=== PATIENT | female | born 1990 | race Caucasian/White ===

== ENCOUNTER 2017-11-05 07:06 | Inpatient (IN) | payer OTHER, BC ==
[2017-11-05] MEDS ORDERED: Misoprostol 25 MCG (1/4 of 100 MCG) Tab VAG ONE (07:35)
[2017-11-05] MEDS ORDERED: Oxytocin/Normal Saline 10 UNIT/1,000 ML BAG IV SCH (11:15)
[2017-11-05] MEDS: Lactated Ringers 1,000 ML IV SCH ×3 (12:43→22:05)
--- NOTE | 2017-11-05 19:11 | PCM.LDHP ---
L&D History of Present Illness - General Date of Service: 11/05/17 Admit Problem/Dx: Patient Status Order with Admit Dx/Problem 11/05/17 07:22 Admission Status [Patient Status] [ADT] Routine Admission Diagnosis/Problem Admission Diagnosis/Problem Source of Information: Patient History Limitations: Reports: No Limitations - History of Present Illness Introduction:: 27 yo Primigravida admitted for induction of labor,post dates - Related Data Allergies/Adverse Reactions: Allergies Allergy/AdvReac Type Severity Reaction Status Date / Time No Known Allergies Allergy Verified 11/05/17 08:20 Home Medications: Home Meds [id number]/Iron Fumarate/FA/DSS [ 19 Tablet] 1 each PO DAILY 11/05/17 [ History] Past Medical History 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 L&D Exam - Exam Exam: See Below - Vital Signs Vital Signs: Last Vital Signs Temp 97.6 F 11/05/17 18:45 Pulse 87 11/05/17 18:45 Resp 16 11/05/17 18:45 BP 129/88 11/05/17 18:45 Pulse Ox 100 11/05/17 18:45 Weight: 103.419 kg - OB Specific Contraction Duration (sec): 40-70 Contraction Frequency (min): 2-3 Contraction Intensity: Moderate to Strong - Velasquez Score Velasquez Score Cervix Position: Posterior Velasquez Score Consistency: Soft Velasquez Score Dilation: Closed Velasquez Score 's Station: -1 ,0 - Exam General: Alert, Oriented HEENT: PERRLA, Conjunctiva Clear, EACs Clear, EOMI, Hearing Intact, Mucosa Moist & [place], Nares Patent, Normal Nasal Septum, Posterior Pharynx Clear, TMs Clear Neck: Supple, Trachea Midline Lungs: Clear to Auscultation, Normal Respiratory Effort Cardiovascular: Regular Rate, Regular Rhythm GI/Abdominal Exam: Normal Bowel Sounds, Soft, Non-Tender, No Organomegaly, No Distention, No Abnormal Bruit, No Mass, Pelvis Stable Rectal Exam: Normal Exam, Normal Rectal Tone Genitourinary: Normal external exam, Normal bimanual exam, Normal speculum exam Back Exam: Normal Inspection, Full Range of Motion Extremities: Normal Inspection, Normal Range of Motion, Non-Tender, No Pedal Edema, Normal Capillary Refill Skin: Warm, Dry, Intact Neurological: Cranial Nerves Intact, Reflexes Equal Bilateral Psychiatric: Alert, Normal Affect, Normal Mood - Problem List (1) Post-dates SNOMED Code(s): 78948644 ICD Code: O48.0 - POST-TERM Status: Acute Current Visit: Yes Qualifiers: Post-term type: 40-42 weeks gestation Qualified Code(s): O48.0 - Post-term (2) Elective induction of labor planned SNOMED Code(s): 039115404 ICD Code: [id number] - Status: Acute Current Visit: Yes Problem List Initiated/Reviewed/Updated: Yes Orders Last 24hrs: Active Orders 24 hr Category Date Time Status Admission Status [Patient Status] [ADT] Routine ADT 11/05/17 07:22 Active Communication Order [RC] ASDIRECTED Care 11/05/17 11:16 Active Communication Order [RC] ASDIRECTED Care 11/05/17 11:16 Active Communication Order [RC] ASDIRECTED Care 11/05/17 11:16 Active Communication Order [RC] ASDIRECTED Care 11/05/17 11:16 Active Notify Provider [RC] PRN Care 11/05/17 11:16 Active Notify Provider [RC] STAT Care 11/05/17 11:16 Active Vital Signs [RC] PER UNIT ROUTINE Care 11/05/17 11:16 Active Lactated Ringers [Ringers, Lactated] 1,000 ml Med 11/05/17 12:00 Active IV ASDIRECTED Oxytocin/Normal Saline [Pitocin in NS 10 UNITS/1,000 ML Med 11/05/17 11:15 Active ] 10 unit in 1,000 ml IV TITRATE Resuscitation Status Routine Resus Stat 11/05/17 10:27 Ordered Medication Orders Oxytocin/Sodium Chloride (Pitocin In Ns 10 Units/1,000 Ml) 10 unit in 1,000 mls @ 12 mls/hr IV TITRATE GREGOR; 2 MUNITS/MIN PRN Reason: Protocol Last Titration: 11/05/17 14:33 Dose: 8 munits/min, 48 mls/hr Titration: 11/05/17 13:56 Dose: 6 munits/min, 36 mls/hr Titration: 11/05/17 13:29 Dose: 4 munits/min, 24 mls/hr Admin: 11/05/17 12:41 Dose: 2 munits/min, 12 mls/hr Lactated Ringer's (Ringers, Lactated) 1,000 mls @ 125 mls/hr IV ASDIRECTED [facility] Last Admin: 11/05/17 12:43 Dose: 125 mls/hr Assessment/Plan Comment:: Admit for Cytotec Induction. There after augment by Pitocin
[2017-11-05] MEDS ORDERED: Ondansetron 4 MG/2 ML SDV IVPUSH ONE (19:42)
[2017-11-05] MEDS ORDERED: fentaNYL 300 MCG in Ropivacaine 200 ML EPIDUR ONE (19:42)
[2017-11-05] MEDS ORDERED: fentaNYL 100 MCG/2 ML SDV EPIDUR ONE ×3 (20:00→23:30)
[2017-11-05] MEDS ORDERED: ePHEDrine 50 MG/ML SDV IVPUSH PRN (21:18)
[2017-11-05] MEDS ORDERED: Promethazine 25 MG/ML SDV IV PRN (21:18)
[2017-11-05] MEDS ORDERED: Naloxone 0.4 MG/ML SDV IVPUSH PRN (21:18)
[2017-11-05] MEDS ORDERED: diphenhydrAMINE 50 MG/ML SDV IVPUSH PRN (21:18)
[2017-11-05] MEDS ORDERED: hydrOXYzine HCl 50 MG/ML SDV IM PRN ×2 (21:18)
[2017-11-05] MEDS ORDERED: Naloxone 0.4 MG in Sodium Chloride 0.9% 100 ML IV PRN (21:18)
[2017-11-06] MEDS ORDERED: Ondansetron 4 MG/2 ML SDV IVPUSH PRN (02:00)
[2017-11-06] MEDS ORDERED: Misoprostol 200 MCG Tab RECTAL ONE (06:15)
[2017-11-06] MEDS ORDERED: Lidocaine 1% 20 ML MDV INJECT ONE (06:30)
[2017-11-06] MEDS: Ibuprofen 600 MG Tab PO SCH ×3 (08:30→18:24)
--- NOTE | 2017-11-06 14:47 | DEL ---
DATE OF DELIVERY: 11/06/2017 NURSES: LULA Garcia, and LULA Nicholson. PREOPERATIVE DIAGNOSES: 1. 40 weeks and 3 days intrauterine . 2. Labor dystocia in second stage. POSTOPERATIVE DIAGNOSES: 1. 40 weeks and 3 days gestation. 2. Failure to progress due to posterior position. PROCEDURES: 1. Vacuum-assisted vaginal delivery with a second-degree midline laceration. 2. Repair of the second-degree midline laceration lasting 25 minutes. ANESTHESIA: Epidural. ESTIMATED BLOOD LOSS: 600 mL. COMPLICATIONS: None. FINDINGS: 1. Live male infant with scores of 8 and 9. 2. Placenta delivered intact, 3-vessel, spontaneously. DISPOSITION: The patient and the baby remained in the Labor Unit in a stable condition. SUMMARY: This 27-year-old female was admitted. She is a primigravida, admitted at 40 weeks and 3 days for induction with a favorable cervix. This was performed by Cytotec. heart tones remained reactive throughout. She was started on Pitocin and labored all night. She was found to be complete at about 0330 hours. Pushing was started about 0345 hours after emptying the bladder. After pushing for 2 hours, the baby's head was not descending. I determined that it is most likely a posterior position and maternal exhaustion necessitated a discussion of an alternative delivery method and vacuum-assisted delivery was discussed with the parents, and they agreed to the procedure. Risks and benefits were reviewed. Estimated weight was about 8 pounds. The patient's perineum was injected with 1% lidocaine, and I performed episiotomy in the midline. The vacuum was placed in the correct position, in the posterior fontanelle, which was confirmed digitally. With the patient's next contraction, the vacuum was inflated and gentle downward pressure was used to assist with bringing the baby's head to 3+ station. Three pop-offs happened. I changed the vacuum to the mushroom-type, placed the correct position and performed the fourth pull, by which the baby's head delivered to a +4 station. The head was stabilized. The vacuum was deflated and removed. A nuchal cord was removed, and the baby was delivered atraumatically. There was less than 30 seconds of delay. No additional maneuvers were required to deliver the anterior shoulder. The baby's cord was clamped x2 and cut. The infant was handed to the waiting nurses. The Pitocin was added to the patient's IV fluids. The placenta delivered spontaneously intact, 3-vessel. Vaginal inspection revealed a second- degree midline laceration. This was repaired with a 4-0 Vicryl in a running fashion. Bleeding was noted to be brisk after the Pitocin and massage. I inserted 600 mcg of Cytotec into the rectum. She tolerated these procedures well. The baby was vigorous, crying and moving all extremities. He will go to the nursery when ready. Total repair time of the laceration was 25 minutes. /[id number] IWONA/MATEUS COOK
[2017-11-07] MEDS: Ibuprofen 600 MG Tab PO SCH ×4 (00:35→18:42)
--- NOTE | 2017-11-07 15:44 | PCM.PNPP ---
- General Info Date of Service: 11/07/17 Functional Status: Reports: Pain Controlled - Review of Systems General: Reports: No Symptoms HEENT: Reports: No Symptoms Pulmonary: Reports: No Symptoms Cardiovascular: Reports: No Symptoms Gastrointestinal: Reports: No Symptoms Genitourinary: Reports: No Symptoms Musculoskeletal: Reports: No Symptoms Skin: Reports: No Symptoms Neurological: Reports: No Symptoms Psychiatric: Reports: No Symptoms - General Info Date of Service: 11/07/17 - Patient Data Vital Signs - Most Recent: Last Vital Signs Temp 98.2 F 11/07/17 08:00 Pulse 82 11/07/17 08:00 Resp 20 11/07/17 08:00 BP 107/70 11/07/17 08:00 Pulse Ox 98 11/07/17 08:00 Weight - Most Recent: 103.419 kg Lab Results - Last 24 Hours: Laboratory Results - last 24 hr 11/07/17 Range/Units 06:10 WBC 17.3 H (4.5-12.0) X10-3/uL RBC 3.36 (3.23-5.20) x10(6)uL Hgb 10.3 L (11.5-15.5) g/dL Hct 30.7 (30.0-51.3) % MCV 91.6 (80-96) fL MCH 30.6 (27.7-33.6) pg MCHC 33.4 (32.2-35.4) g/dL RDW 13.5 (11.5-15.5) % Plt Count 237 (125-369) X10(3)uL Med Orders - Current: Current Medications Oxytocin/Sodium Chloride (Pitocin In Ns 10 Units/1,000 Ml) 10 unit in 1,000 mls @ 12 mls/hr IV TITRATE GREGOR; 2 MUNITS/MIN PRN Reason: Protocol Last Titration: 11/06/17 05:11 Dose: 16 munits/min, 96 mls/hr Ibuprofen (Motrin) 600 mg PO Q6H GREG[facility] Last Admin: 11/07/17 13:59 Dose: 600 mg Discontinued Medications Diphenhydramine HCl (Benadryl) 25 mg IVPUSH ASDIRECTED PRN PRN Reason: PRURITUS Last Admin: 11/06/17 08:40 Dose: 25 mg Ephedrine Sulfate (Ephedrine Sulfate) 5 mg IVPUSH ASDIRECTED PRN PRN Reason: HYPOTENSION Hydroxyzine HCl (Vistaril) 50 mg IM Q6H PRN PRN Reason: PRURITIS Hydroxyzine HCl (Vistaril) 0 mg IM Q4H PRN PRN Reason: N/V Lactated Ringer's (Ringers, Lactated) 1,000 mls @ 125 mls/hr IV ASDIRECTED [facility] Last Admin: 11/05/17 22:05 Dose: 125 mls/hr Naloxone HCl 0.4 mg/ Sodium (Chloride) 101 mls @ 25 mls/hr IV ASDIRECTED PRN PRN Reason: PER ORDER OF ANESTHESIA Lidocaine HCl (Xylocaine 1%) 20 ml INJECT ONETIME ONE Stop: 11/06/17 06:31 Last Admin: 11/06/17 06:05 Dose: 20 ml Misoprostol (Cytotec) 25 mcg VAG ONETIME ONE Stop: 11/05/17 07:36 Last Admin: 11/05/17 07:52 Dose: 25 mcg Misoprostol (Cytotec) 600 mcg RECTAL ONETIME ONE Stop: 11/06/17 06:16 Last Admin: 11/06/17 06:15 Dose: 600 mcg Naloxone HCl (Narcan) 0.1 mg IVPUSH ASDIRECTED PRN PRN Reason: RESPIRATORY STATUS Ondansetron HCl (Zofran) 4 mg IVPUSH Q6H PRN PRN Reason: NAUSEA AND VOMITING Promethazine HCl (Phenergan) 6.25 - 12.5 mg IV Q4H PRN PRN Reason: NAUSEA AND VOMITING - Interaction Support Person: - Recovery Exam Fundal Tone: Firm Fundal Level: 2 Fingerbreadths Above Umbilicus Fundal Placement: Midline Lochia Amount: Moderate Lochia Color: Rubra/Red Perineum Description: Edematous Other Perinuem Description: some edema Episiotomy/Laceration: Approximated Bladder Status: Voiding Urinary Elimination: Voided - Exam General: Alert, Oriented HEENT: Pupils Equal Neck: Supple Lungs: Clear to Auscultation, Normal Respiratory Effort Cardiovascular: Regular Rate, Regular Rhythm GI/Abdominal Exam: Normal Bowel Sounds, Soft, Non-Tender, No Organomegaly, No Distention, No Abnormal Bruit, No Mass, Pelvis Stable Extremities: Normal Inspection, Normal Range of Motion, Non-Tender, No Pedal Edema, Normal Capillary Refill Skin: Warm, Dry, Intact Wound/Incisions: Healing Well Neurological: No New Focal Deficit Psy/Mental Status: Alert, Normal Affect, Normal Mood - Problem List & Annotations (1) Post-dates SNOMED Code(s): 54817156 Code(s): O48.0 - POST-TERM Status: Acute Current Visit: Yes Qualifiers: Post-term type: 40-42 weeks gestation Qualified Code(s): O48.0 - Post-term (2) Elective induction of labor planned SNOMED Code(s): 982235653 Code(s): [id number] - Status: Acute Current Visit: Yes (3) care and examination SNOMED Code(s): 229156403, 341967148 Code(s): Z39.2 - ENCOUNTER FOR ROUTINE FOLLOW-UP Status: Acute Current Visit: Yes - Problem List Review Problem List Initiated/Reviewed/Updated: Yes - Plan Plan:: Routine Care
[2017-11-08] MEDS: Ibuprofen 600 MG Tab PO SCH ×2 (00:16→06:25)
--- NOTE | 2017-11-08 09:46 | PCM.PNPP ---
- General Info Date of Service: 11/08/17 Functional Status: Reports: Pain Controlled - Review of Systems General: Reports: No Symptoms HEENT: Reports: No Symptoms Pulmonary: Reports: No Symptoms Cardiovascular: Reports: No Symptoms Gastrointestinal: Reports: No Symptoms Genitourinary: Reports: No Symptoms Musculoskeletal: Reports: No Symptoms Skin: Reports: No Symptoms Neurological: Reports: No Symptoms Psychiatric: Reports: No Symptoms - General Info Date of Service: 11/08/17 - Patient Data Vital Signs - Most Recent: Last Vital Signs Temp 97.5 F 11/08/17 08:00 Pulse 75 11/08/17 08:00 Resp 20 11/08/17 08:00 BP 128/85 11/08/17 08:00 Pulse Ox 98 11/08/17 08:00 Weight - Most Recent: 103.419 kg Med Orders - Current: Current Medications Oxytocin/Sodium Chloride (Pitocin In Ns 10 Units/1,000 Ml) 10 unit in 1,000 mls @ 12 mls/hr IV TITRATE GREGOR; 2 MUNITS/MIN PRN Reason: Protocol Last Titration: 11/06/17 05:11 Dose: 16 munits/min, 96 mls/hr Ibuprofen (Motrin) 600 mg PO Q6H [facility] Last Admin: 11/08/17 06:25 Dose: 600 mg Discontinued Medications Diphenhydramine HCl (Benadryl) 25 mg IVPUSH ASDIRECTED PRN PRN Reason: PRURITUS Last Admin: 11/06/17 08:40 Dose: 25 mg Ephedrine Sulfate (Ephedrine Sulfate) 5 mg IVPUSH ASDIRECTED PRN PRN Reason: HYPOTENSION Hydroxyzine HCl (Vistaril) 50 mg IM Q6H PRN PRN Reason: PRURITIS Hydroxyzine HCl (Vistaril) 0 mg IM Q4H PRN PRN Reason: N/V Lactated Ringer's (Ringers, Lactated) 1,000 mls @ 125 mls/hr IV ASDIRECTED [facility] Last Admin: 11/05/17 22:05 Dose: 125 mls/hr Naloxone HCl 0.4 mg/ Sodium (Chloride) 101 mls @ 25 mls/hr IV ASDIRECTED PRN PRN Reason: PER ORDER OF ANESTHESIA Lidocaine HCl (Xylocaine 1%) 20 ml INJECT ONETIME ONE Stop: 11/06/17 06:31 Last Admin: 11/06/17 06:05 Dose: 20 ml Misoprostol (Cytotec) 25 mcg VAG ONETIME ONE Stop: 11/05/17 07:36 Last Admin: 11/05/17 07:52 Dose: 25 mcg Misoprostol (Cytotec) 600 mcg RECTAL ONETIME ONE Stop: 11/06/17 06:16 Last Admin: 11/06/17 06:15 Dose: 600 mcg Naloxone HCl (Narcan) 0.1 mg IVPUSH ASDIRECTED PRN PRN Reason: RESPIRATORY STATUS Ondansetron HCl (Zofran) 4 mg IVPUSH Q6H PRN PRN Reason: NAUSEA AND VOMITING Promethazine HCl (Phenergan) 6.25 - 12.5 mg IV Q4H PRN PRN Reason: NAUSEA AND VOMITING - Interaction Support Person: - Recovery Exam Fundal Tone: Firm Fundal Level: At Umbilicus Fundal Placement: Left Lochia Amount: Small Lochia Color: Rubra/Red Perineum Description: Edematous Other Perinuem Description: some edema Episiotomy/Laceration: Approximated Bladder Status: Voiding Urinary Elimination: Voided - Exam General: Alert, Oriented HEENT: Pupils Equal Neck: Supple Lungs: Clear to Auscultation, Normal Respiratory Effort Cardiovascular: Regular Rate, Regular Rhythm GI/Abdominal Exam: Normal Bowel Sounds, Soft, Non-Tender, No Organomegaly, No Distention, No Abnormal Bruit, No Mass, Pelvis Stable Extremities: Normal Inspection, Normal Range of Motion, Non-Tender, No Pedal Edema, Normal Capillary Refill Skin: Warm, Dry, Intact Wound/Incisions: Healing Well Neurological: No New Focal Deficit Psy/Mental Status: Alert, Normal Affect, Normal Mood - Problem List & Annotations (1) Post-dates SNOMED Code(s): 92774244 Code(s): O48.0 - POST-TERM Status: Acute Current Visit: Yes Qualifiers: Post-term type: 40-42 weeks gestation Qualified Code(s): O48.0 - Post-term (2) Elective induction of labor planned SNOMED Code(s): 843735414 Code(s): [id number] - Status: Acute Current Visit: Yes (3) care and examination SNOMED Code(s): 778882796, 869080279 Code(s): Z39.2 - ENCOUNTER FOR ROUTINE FOLLOW-UP Status: Acute Current Visit: Yes - Problem List Review Problem List Initiated/Reviewed/Updated: Yes - Plan Plan:: OCTAVIA culver
--- NOTE | 2017-11-08 11:07 | DISCH ---
DISCHARGE DATE: 11/08/2017 REASON FOR ADMISSION: Induction of labor. DISCHARGE DIAGNOSES: 1. Term delivery, spontaneous vaginal. 2. Vacuum assisted delivery. 3. Perineal laceration, repaired. CONSULTATIONS: None. PROCEDURES: Operative vaginal delivery. BRIEF HISTORY AND HOSPITAL COURSE: This is a 27-year-old female admitted at term a few days passed for induction of labor. This was accomplished on the . She had a prolonged 2nd stage that needed vacuum evacuation. She did well postoperatively and is ready to go home today. DISCHARGE MEDICATIONS: vitamins. DISCHARGE VITAL SIGNS: Stable. FOLLOWUP: Six weeks . I spent more than 35 minutes in the discharge. /[id number] IWONA/MATEUS
== END 2017-11-08 10:30 | disposition home or self-care (01) | DRG 775 ==
LOC: FB.OB 07:06 → OBSVTOIN 07:06
PROVIDERS: ADMIT Family Medicine; ATTEND Family Medicine
PROC: 3E0P7VZ Introduction of Hormone into Female Reproductive, Via Natural or Artificial Opening (ICD-10-PCS; 2017-11-05)
PROC: 3E033VJ Introduction of Other Hormone into Peripheral Vein, Percutaneous Approach (ICD-10-PCS; 2017-11-05)
PROC: 00HU33Z Insertion of Infusion Device into Spinal Canal, Percutaneous Approach (ICD-10-PCS; 2017-11-05)
PROC: 10D07Z6 Extraction of Products of Conception, Vacuum, Via Natural or Artificial Opening (ICD-10-PCS; principal; 2017-11-06)
PROC: 0KQM0ZZ Repair Perineum Muscle, Open Approach (ICD-10-PCS; 2017-11-06)
PROC: 0W8NXZZ Division of Female Perineum, External Approach (ICD-10-PCS; 2017-11-06)
DX: O48.0 Post-term pregnancy (principal); Z3A.40 40 weeks gestation of pregnancy; O66.8 Other specified obstructed labor; O70.1 Second degree perineal laceration during delivery; O69.81X0 Labor and delivery complicated by cord around neck, without compression, not applicable or unspecified; O61.0 Failed medical induction of labor; Z37.0 Single live birth; O63.1 Prolonged second stage (of labor); O75.81 Maternal exhaustion complicating labor and delivery
CPT/HCPCS: 36415; 51701; 59300; 59409; 85027; A9270-GY; J1200; J2405; J2590; J2795; J3010; J7120